=== PATIENT | male | born 1980 | race Two or more races ===

== ENCOUNTER 2018-09-10 04:54 | Emergency (ER) | payer BC ==
[2018-09-10 05:47] VITALS: TEMP 97.8; BMI 39.4
--- NOTE | 2018-09-10 07:15 | PDOC ---
Attending Attestation - Resident Resident Name: Tru Carter - ED Attending Attestation I have performed the following: I have examined & evaluated the patient, The case was reviewed & discussed with the resident, I agree w/resident's findings & plan, Exceptions are as noted - HPI HPI: 09/10/18 08:09 Chief complaint lower abdominal testicular pain now resolved History of present illness: 37 years old past medical history significant for bilateral inguinal hernia repair presents to the ED with right flank pain radiating to his right groin starting at approximately 3:00 yesterday took some naproxen with some good relief pain then became intermittent colicky coming and going was worse overnight. This morning while waiting to be seen had a bowel movement and urinated and pain completely disappeared. No fever no chills no chest pain or shortness of breath 2 episodes of nonbilious somebody vomiting when the pain was very severe yesterday Insert my ROS statement - Physicial Exam PE: 09/10/18 08:09 Vitals: Triage Vital signs reviewed General Appearance: no acute distress, well nourished well developed, Head: Atraumatic, Neck: Supple;No Nucal rigidity Chest Wall: Nontender Abdomen: Soft, non distended, normal bowel sounds, non tender to palpation, no CVA tenderness to palpation : No testicular swelling no testicular tenderness to palpation Extremities: Full range of motion to all extremities, no cyanosis, clubbing, or edema Skin: Warm and dry, no rashes or lesions, no rash, no petechiae Psych: normal mood, normal affect - Medical Decision Making 09/10/18 08:10 Afebrile well-appearing no apparent distress with completely resolved pain. Given colicky nature of discomfort with distribution history and examination suggestive of past renal stone. We'll check urinalysis. We'll perform serial abdominal exams. At this time very low suspicion for other more serious etiologies such as complications from previous hernia repair or appendicitis given that he has no fever no pain and is currently symptom free 09/10/18 15:26 Reevaluation repeat abdominal examination benign no rebound or guarding no tenderness no testicular pain Small amount of blood noted in urine history examination given several hours of intermittent pain followed by an several hours pain-free after using the bathroom most consistent with passed kidney stone bedside ultrasound performed with no obvious hydro Risks and benefits of imaging discussed at length with patient given no fever and several hours pain-free with several benign abdominal examinations low suspicious for more serious or infectious etiologies at this time Patient return to ED for any severe returning symptoms or for any concerns.
--- NOTE | 2018-09-10 07:17 | PDOC ---
History of Present Illness - General Chief Complaint: Pain, Acute Stated Complaint: GROIN PAIN Time Seen by Provider: 09/10/18 07:00 History Source: Patient Exam Limitations: No Limitations - History of Present Illness Initial Comments: 09/10/18 07:12 37 yo male pmh of 2 inguinal hernias (s/p surgical repair 10 years ago) presents to the ED for right sided flank pain radiating down to his right groin with 2 episodes of NB/NB vomiting. Pt states at 3 pm yesterday he had sudden onset right flank pain described as sharp and intermittent with radiation to the right testicle. Pain improved after naproxen last night. Denies current complaints (pain and nausea resolved) after having a bowel movement 1 hour ago. Denies F/C, back pain, pain/increased frequency/blood on urination, changes in bowel habits, current testicular pain Past History - Past Medical History Allergies/Adverse Reactions: Allergies Allergy/AdvReac Type Severity Reaction Status Date / Time No Known Allergies Allergy Verified 09/10/18 05:55 Home Medications: Ambulatory Orders Naproxen 500 mg PO BID 5 Days #10 tablet 09/10/18 COPD: No - Surgical History Abdominal Surgery: Yes - Suicide/Smoking/Psychosocial Hx Smoking History: Current some day smoker Have you smoked in the past 12 months: Yes Information on smoking cessation initiated: No Hx Alcohol Use: Yes Drug/Substance Use Hx: No Review of Systems - Review of Systems Constitutional: No: Chills, Fever Respiratory: No: Shortness of Breath Cardiac (ROS): No: Chest Pain, Edema ABD/GI: No: Constipated, Diarrhea, Nausea (resolved), Vomiting (resolved) : No: Burning, Dysuria, Discharge, Frequency, Hematuria, Incontinence, Pain, Testicular Swelling, Testicular Pain (resolved) Musculoskeletal: Yes: Other (right flank pain). No: Back Pain Neurological: No: Numbness, Paresthesia, Weakness *Physical Exam - Vital Signs Last Vital Signs Temp Pulse Resp BP Pulse Ox 97.8 F 67 18 123/77 98 09/10/18 05:25 09/10/18 05:25 09/10/18 05:25 09/10/18 05:25 09/10/18 05:25 - Physical Exam General Appearance: Yes: Nourished, Appropriately Dressed. No: Apparent Distress HEENT: positive: EOMI Neck: positive: Supple. negative: Carotid bruit Respiratory/Chest: positive: Lungs Clear, Normal Breath Sounds. negative: Accessory Muscle Use, Rapid RR, Crackles, Rales, Rhonchi, Wheezing Cardiovascular: positive: Regular Rhythm, Regular Rate, S1, S2. negative: Edema , JVD, Murmur Vascular Pulses: Dorsalis-Pedis (R): 4+, Doralis-Pedis (L): 4+ Gastrointestinal/Abdominal: positive: Flat, Soft. negative: Protuberent, Distended, Guarding, Rebound, Tenderness Male Genitalia: positive: normal genitalia, other (no hernia ). negative: testicular tenderness, testicular mass Musculoskeletal: negative: CVA Tenderness Extremity: positive: Normal Capillary Refill, Normal Inspection Integumentary: positive: Normal Color, Dry, Warm Neurologic: positive: Fully Oriented, Alert, Normal Mood/Affect, Normal Response Medical Decision Making - Medical Decision Making 09/10/18 09:08 37 yo male pmh of 2 inguinal hernias (s/p surgical repair 10 years ago) presents to the ED for right sided flank pain radiating down to his right groin with 2 episodes of NB/NB vomiting. Pt states at 3 pm yesterday he had sudden onset right flank pain described as sharp and intermittent with radiation to the right testicle. Pain improved after naproxen last night. Denies current complaints (pain and nausea resolved) after having a bowel movement 1 hour ago. Denies F/C, back pain, pain/increased frequency/blood on urination, changes in bowel habits, current testicular pain Vitals wnl NAD, AOX3, ambulates without difficulty initial abdominal exam neg. See PE DDX INLT: renal colic, UTI, cholecystitis (no GB stones, sono murphys on US), appendicitis (no fevers, mcburnys neg), testicular torsion (unlikely, pain resolved and pain focused to the right flank with 3+ blood in the urine) UA shows 3+ blood, pt likely had renal stone Repeat abdominal exam continues to be neg pt comfortable, does not require medication for pain bedside renal US shows no gross hydro bilaterally 09/10/18 09:[address] with pt. Shared in decision making process with pt that need for CT at this time will likely show a non obstucting stone due to no hydro, no fevers, no CVA tenderness. Pt agrees with not doing CT and given strict return precautions when a possible CT may be indicated 3rd repeat exam normal, pt safe for DC home with PCP follow up and given strict return precautions for possible testicular torsion, appendicitis, gall stones or repeat pain related to likely renal stone. *DC/Admit/Observation/Transfer Diagnosis at time of Disposition: Renal stone - Discharge Dispostion Disposition: HOME Condition at time of disposition: Stable Decision to Admit order: No - Referrals - Patient Instructions Printed Discharge Instructions: DI for Kidney Stones Additional Instructions: Please see your Primary Doctor within the next 48 hours. Take over the counter NSAIDs for pain control as needed. Increase your water intake. Return to the ER for new or concerning symptoms including but not limited to: return of pain, abdominal pain, fevers, inability to eat or drink, testicular pain. Thank you - Post Discharge Activity
[2018-09-10 08:09] LABS: EPI CELLS 3.2 /HPF (0-5/HPF); HYALINE CASTS 13 /lpf (0-8); PH,URINE 5.5 (5.0-8.0); URINE APPEARANCE CLOUDY; URINE BACTERIA 2.4 /hpf (NEGATIVE); URINE BILIRUBIN NEGATIVE (NEGATIVE); URINE COLOR YELLOW; URINE GLUCOSE (UA) NEGATIVE (NEGATIVE); URINE KETONE TRACE (NEGATIVE); URINE LEUK ESTERASE NEGATIVE (NEGATIVE); URINE NITRITE NEGATIVE (NEGATIVE); URINE PROTEIN TRACE (NEGATIVE); URINE RBC 47 /hpf (0-4); URINE UROBILINOGEN 0.2 mg/dL (0.2-1.0); URINE WBC 3 /hpf (0-5)
[2018-09-10 09:24] VITALS: BP 134/78; PULSE 78
== END 2018-09-10 09:10 | disposition home or self-care (01) ==
LOC: JER 04:54
DX: N20.0 Calculus of kidney (principal)
CPT/HCPCS: 81003; 99283-25